=== PATIENT | male | born 1990 | race Two or more races ===

== ENCOUNTER 2019-08-10 12:59 | Emergency (ER) | payer MEDICAID, OTHER ==
[~2019-08-10] VITALS: Ht 188 cm; Wt 90.2 kg
[2019-08-10 13:00] VITALS: BP 112/76
--- NOTE | 2019-08-10 13:17 | NUR ---
29 yr old male complaints of low back pain described as muscular. denies and urinary symptoms. is unable to identify any sort of activity that may have caused the piain. described the pain as dull and aching.
[2019-08-10 14:06] LABS: BASOPHILS # (AUTO) 0.03 x10^3/uL (0-0.1); BASOPHILS % (AUTO) 0 % (0-1); EOSINOPHILS # (AUTO) 0.16 x10^3/uL (0-0.4); EOSINOPHILS % (AUTO) 2 % (1-7); LYMPHOCYTES # (AUTO) 1.52 x10^3/uL (1-3.4); LYMPHOCYTES % (AUTO) 23 % (22-44); MD NO; MEAN CORPUSCULAR HEMOGLOBIN 30.8 pg (27.5-34.5); MEAN CORPUSCULAR HGB CONC 33.8 g/dL (33.2-36.2); MEAN CORPUSCULAR VOLUME 91.3 fL (81-97); MEAN PLATELET VOLUME 8.3 fL (7.4-10.4); MONOCYTES # (AUTO) 0.53 x10^3/uL (0.2-0.8); MONOCYTES % (AUTO) 8 % (2-9); NEUTROPHILS # (AUTO) 4.54 x10^3/uL (1.8-6.8); NEUTROPHILS % (AUTO) 67 % (42-75); PLATELET COUNT 232 x10^3/uL (130-400); RED BLOOD COUNT 5.89 x10^6/uL (4.38-5.82); RED CELL DISTRIBUTION WIDTH 12.8 % (9.4-14.8)
[2019-08-10 14:10] LABS: MICROSCOPIC NOT IND
[2019-08-10 14:15] LABS: ALBUMIN 3.8 g/dL (3.4-5.0); ANION GAP 5 mmol/L (5-15); CALCIUM 8.8 mg/dL (8.5-10.1); CHLORIDE 107 mmol/L (98-107)
[2019-08-10 14:18] LABS: ALANINE AMINOTRANSFERASE 44 U/L (12-78); ALKALINE PHOSPHATASE 67 U/L (45-117); BILIRUBIN,TOTAL 0.6 mg/dL (0.2-1.0); CREATININE 0.99 mg/dL (0.7-1.3); TOTAL PROTEIN 7.3 g/dL (6.4-8.2)
[2019-08-10 14:21] LABS: CULTURE INDICATED? NO
== END 2019-08-10 15:27 | disposition home or self-care (01) ==
LOC: ED 15:20
DX: S39.011A Strain of muscle, fascia and tendon of abdomen, initial encounter (principal); F17.200 Nicotine dependence, unspecified, uncomplicated; X58.XXXA Exposure to other specified factors, initial encounter; Y93.89 Activity, other specified; Y92.89 Other specified places as the place of occurrence of the external cause; Y99.8 Other external cause status
CPT/HCPCS: 36415; 80053; 81003; 85025; 99283

== ENCOUNTER 2019-12-23 14:12 | Emergency (ER) | payer MEDICAID ==
[~2019-12-23] VITALS: Ht 188 cm; Wt 88.9 kg
[2019-12-23 14:29] VITALS: BP 123/72
--- NOTE | 2019-12-23 14:38 | NUR ---
PATIENT WALKED BACK FROM TRIAGE WITH CHIEF C/O LEFT SIDED TOOTH ABSCESS THAT STARTED YESTERDAY. ERMD AT BEDSIDE FOR EVALUATION.
--- NOTE | 2019-12-23 15:11 | NUR ---
DISCHARGE INSTRUCTIONS REVIEWED
== END 2019-12-23 15:13 | disposition home or self-care (01) ==
LOC: ED 15:05
DX: K04.7 Periapical abscess without sinus (principal); F17.210 Nicotine dependence, cigarettes, uncomplicated
CPT/HCPCS: 99283; 99406

== ENCOUNTER 2020-01-05 15:26 | Emergency (ER) | payer MEDICAID ==
[~2020-01-05] VITALS: Ht 188 cm; Wt 90.2 kg
[2020-01-05 15:28] VITALS: BP 129/67
== END 2020-01-05 16:28 | disposition home or self-care (01) ==
LOC: ED 16:20
DX: M72.2 Plantar fascial fibromatosis (principal)
CPT/HCPCS: 99283